=== PATIENT | female | born 1995 | race Caucasian/White ===

== ENCOUNTER 2020-06-26 13:41 | Emergency (ER) | payer MEDICAID ==
[~2020-06-26] VITALS: Ht 162.6 cm; Wt 61.4 kg
[2020-06-26 14:26] VITALS: TEMP 97.9
[2020-06-26 17:01] LABS: BASO % 0.2 % (0.0-2.0); EOS # 0.1 (0.0-0.7); EOS % 0.7 % (0-4.0); GRAN # 10.6 (1.4-6.5); GRAN % 85.4 % (42.2-75.2); HEMATOCRIT 38.7 % (37.0-47.0); HEMOGLOBIN 12.4 g/dl (12.5-16.0); LYMPH # 1.2 (1.2-3.4); LYMPH % 9.7 % (20.0-51.0); MEAN CELL VOLUME 89 fl (80.0-100.0); MEAN CORPUSCULAR HEMOGLOBIN 29 pg (27.0-31.0); MEAN CORPUSCULAR HGB CONC 32 g/dl (33.0-37.0); MEAN PLATELET VOLUME 9.8 fl (7.4-10.4); MONO # 0.5 (0.1-0.6); MONO % 3.8 % (1.7-9.3); PLATELET COUNT 359 K/mm3 (130-400); RED BLOOD COUNT 4.34 M/mm3 (4.10-5.30); REDCELL DISTRIBUTION WIDTH-CV 15.7 % (11.5-14.5)
[2020-06-26] MEDS ORDERED: EFFEXOR-XR150 MG PO (17:04)
[2020-06-26] MEDS ORDERED: WELLBUTRIN SR150 M1 PO (17:05)
[2020-06-26 17:14] LABS: ALANINE AMINOTRANSFERASE 13 U/L (4-34); ALBUMIN 4.6 gm/dL (3.5-5.0); ALKALINE PHOSPHATASE 67 U/L (50-136); ANION GAP 8 mmol/L (7-16); AST,SGOT 24 U/L (15-37); BILIRUBIN,TOTAL 0.6 mg/dL (0.0-1.0); BLOOD UREA NITROGEN 9 mg/dL (7-17); CALCIUM 9.3 mg/dL (8.4-10.2); CARBON DIOXIDE 28 mmol/L (22-30); CHLORIDE 103 mmol/L (98-107); CREATININE, serum 0.74 (0.52-1.25); GLUCOSE 136 mg/dL (74-106); LIPASE 65 U/L (23-300); POTASSIUM 3.7 mmol/L (3.4-5.0); SODIUM 140 mmol/L (137-145); TOTAL PROTEIN 7.1 gm/dL (6.4-8.2)
[2020-06-26 17:17] LABS: C-REACTIVE PROTEIN < 0.5 mg/dL (0.0-0.9)
[2020-06-26 18:47] LABS: COLLECTION METHOD CLEAN CATCH
[2020-06-26 19:04] LABS: PH 5 (5-8); SQUAMOUS EPITHELIAL None Seen /hpf; URINE APPEARANCE Cloudy; URINE BACTERIA None Seen /hpf; URINE BILIRUBIN Negative (NEGATIVE); URINE BLOOD 3+ (NEGATIVE); URINE GLUCOSE Negative (NEGATIVE); URINE KETONE Negative (NEGATIVE); URINE LEUKOCYTE ESTERASE 1+ (NEGATIVE); URINE NITRATE Negative (NEGATIVE); URINE PROTEIN(semi-quant) 2+ (NEGATIVE); URINE RBC 20-50 /hpf; URINE UROBILINOGEN Negative (NEGATIVE)
[2020-06-26 19:05] LABS: URINE COLOR Red
[2020-06-26] MEDS ORDERED: CEFTIN500 MG PO (19:24)
[2020-06-26 19:37] VITALS: BP 122/70; PULSE 65
== END 2020-06-26 19:37 | disposition home or self-care (01) ==
LOC: COL.ER 13:41
PROVIDERS: Nurse Practitioner
DX: N30.90 Cystitis, unspecified without hematuria (principal); Z88.0 Allergy status to penicillin; Z88.5 Allergy status to narcotic agent; Z32.02 Encounter for pregnancy test, result negative